=== PATIENT | female | born 1960 | race Hispanic/Latino ===

== ENCOUNTER 2019-08-15 22:28 | Emergency (ER) | payer OTHER ==
[2019-08-15] MEDS ORDERED: ONDANSETRON ODT 4 MG TAB ONE (22:43)
[2019-08-15] MEDS ORDERED: ORPHENADRINE CITRATE 30 MG/ML ML ONE (23:04)
[2019-08-15] MEDS ORDERED: KETOROLAC TROMETHAMINE 60 MG/2 ML VIAL ONE (23:42)
== END 2019-08-15 23:52 | disposition home or self-care (01) ==
LOC: EDH 22:28
DX: S00.03XA Contusion of scalp, initial encounter (principal); S09.90XA Unspecified injury of head, initial encounter; Z98.890 Other specified postprocedural states; Z90.49 Acquired absence of other specified parts of digestive tract; X58.XXXA Exposure to other specified factors, initial encounter; Y93.67 Activity, basketball; Y92.098 Other place in other non-institutional residence as the place of occurrence of the external cause; Y99.8 Other external cause status
CPT/HCPCS: 70450; 96372 ×2; 99284; J1885; J2360